=== PATIENT | male | born 1950 | race Caucasian/White ===

== ENCOUNTER 2018-10-10 13:57 | Outpatient (CLI) | payer OTHER | END 2018-10-10 13:58 | disposition home or self-care (01) | LOC: DTY/OP 13:57 | PROVIDERS: ATTEND Surgery | DX: E66.01 Morbid (severe) obesity due to excess calories (principal) | CPT/HCPCS: 97802 ==

== ENCOUNTER 2018-10-28 01:33 | Outpatient (CLI) | payer MEDICARE ==
--- NOTE | 2018-10-28 15:13 | RAD ---
TWO VIEWS CHEST: Comparison: 10-25-13 History: Pre-operative radiograph. FINDINGS: Two views of the chest shows a normal sized cardiomediastinal silhouette. A pacemaker is seen with it s leads in the right atrium, right ventricle and coronary sinus. There is no evidence of consolidatio n, mass, or pleural effusions. Degenerative changes are seen in the spine. IMPRESSION: No evidence of acute cardiopulmonary disease. POS: C
[2018-10-28 15:37] LABS: #Basophils 0.1 thou/uL (0.0-0.2); #Eosinphils 0.2 thou/uL (0.0-0.7); #Lymphocytes 1.7 thou/uL (1.20-3.40); #Monocytes 0.5 thou/uL (0.11-0.59); #Neutrophils 4.2 thou/uL (1.40-6.50); %Eosinophils 2.5 % (0.0-10.0); %Lymphocytes 25.3 % (21.0-51.0); %Monocytes 6.9 % (0.0-10.0); %Neutrophils 64.3 % (42.0-75.0); Hemoglobin 15.1 g/dL (14.0-18.0); Mean Corpuscular HGB CONC 34.3 g/dL (32.0-36.0); Mean Corpuscular Hemoglobin 30.8 pg (27.0-31.0); Mean Platelet Volume 6.8 fL (7.4-10.4); Platelet Count 274 thou/uL (130-400); Red Blood Cell (RBC) Count 4.89 mill/uL (4.70-6.10); White Blood Cell (WBC) Count 6.6 thou/uL (4.8-10.8)
[2018-10-28 15:50] LABS: Hemoglobin A1c 9.3 % (4.0-6.0)
[2018-10-28 15:57] LABS: ALT (SGPT) 24 U/L (8-55); AST (SGOT) 13 U/L (5-34); Alkaline Phosphatase 94 U/L (40-150); Anion Gap 12 mmol/L (10-20); BUN (Urea Nitrogen) 11 mg/dL (8.4-25.7); Bilirubin, Direct 0.2 mg/dL (0.1-0.3); Bilirubin, Total 0.5 mg/dL (0.2-1.2); Calc. Creatinine Clearance 0 mL/min (70-130); Calcium 9.4 mg/dL (7.8-10.44); Carbon Dioxide 22 mmol/L (23-31); Chloride 105 mmol/L (98-107); Estimated GFR-MDRD 75; Globulin 2.6 g/dL (2.4-3.5); Glucose 236 mg/dL (80-115); Potassium 4.2 mmol/L (3.5-5.1); Protein, Total 6.6 g/dL (5.8-8.1); Sodium 135 mmol/L (136-145)
--- NOTE | 2018-10-28 17:11 | EKG ---
Test Reason : Blood Pressure : / mmHG Vent. Rate : 061 BPM Atrial Rate : 061 BPM P-R Int : 142 ms QRS Dur : 212 ms QT Int : 532 ms P-R-T Axes : 069 009 122 degrees QTc Int : 535 ms AV sequential or dual chamber electronic pacemaker No previous ECGs available Confirmed by ALOK CHISHOLM ([id number]) on 10/28/2018 5:10:55 PM Referred By: MAHSA Confirmed By:ALOK CHISHOLM
== END 2018-10-28 01:34 | disposition home or self-care (01) ==
LOC: LABBT 01:33
PROVIDERS: ATTEND Surgery
DX: Z01.818 Encounter for other preprocedural examination (principal); E11.9 Type 2 diabetes mellitus without complications; G47.30 Sleep apnea, unspecified; E78.5 Hyperlipidemia, unspecified
CPT/HCPCS: 71046; 80053; 80076; 83036; 85025; 93005; 93010

== ENCOUNTER 2018-10-28 13:30 | Inpatient (IN) | payer MEDICARE ==
[2018-10-28 14:19] VITALS: BMI 49.1
[2018-11-01] MEDS ORDERED: Heparin 5,000 UNITS/ML VIAL ONE (07:29)
[2018-11-01] MEDS ORDERED: Fentanyl 100 MCG/2 ML VIAL ONE ×4 (08:23→11:22)
[2018-11-01] MEDS ORDERED: Midazolam HCl 2 mg/2 ml Vial ONE (08:23)
[2018-11-01] MEDS ORDERED: Bupivacaine/Epinephrine 0.25% 30 ML VIAL ONE (08:28)
[2018-11-01] MEDS ORDERED: Promethazine HCl 25 MG/ML VIAL IM PRN ×3 (10:05→11:06)
[2018-11-01] MEDS ORDERED: Promethazine HCl 25 MG/ML VIAL SLOW IVP PRN (10:05)
[2018-11-01] MEDS ORDERED: Ondansetron HCl/PF 4 MG/2 ML Vial IVP PRN (10:05)
[2018-11-01] MEDS ORDERED: Promethazine HCl 25 MG/ML VIAL ONE (10:49)
[2018-11-01] MEDS ORDERED: diphenhydrAMINE 50 MG/ML VIAL IVP PRN ×2 (11:02→11:06)
[2018-11-01] MEDS ORDERED: Hydrocodone-Acetamin 15 ML UDCUP PO PRN (11:02)
[2018-11-01] MEDS ORDERED: Dextrose 50% Abboject 50 ML SYRINGE SLOW IVP PRN (11:02)
[2018-11-01] MEDS ORDERED: Dextrose 5% in Water 1,000 ML IV PRN (11:02)
[2018-11-01] MEDS ORDERED: Ondansetron PF 4 MG/2 ML Vial IVP PRN ×2 (11:02→11:06)
[2018-11-01] MEDS ORDERED: fentaNYL Citrate/PF 2,000 MCG in Sodium Chloride 0.9% 60 ML IV PRN (11:06)
[2018-11-01] MEDS ORDERED: diphenhydrAMINE 25 MG CAP PO PRN (11:06)
[2018-11-01] MEDS ORDERED: Naloxone HCl 0.4 mg/ml Vial IV PRN (11:06)
[2018-11-01] MEDS ORDERED: Zolpidem Tartrate 5 MG TAB PO PRN (11:06)
[2018-11-01] MEDS ORDERED: diphenhydrAMINE 50 MG/ML VIAL IM PRN (11:06)
[2018-11-01] MEDS ORDERED: Communication Order-Pharmacy FS SCH ×2 (11:15→13:15)
--- NOTE | 2018-11-01 12:08 | OP ---
DATE OF PROCEDURE: 11/01/2018 PREOPERATIVE DIAGNOSES: 1. Morbid obesity with a body mass index of 49. 2. Hypertension. 3. Dyslipidemia. 4. Diabetes mellitus. POSTOPERATIVE DIAGNOSES: 1. Morbid obesity with a body mass index of 49. 2. Hypertension. 3. Dyslipidemia. 4. Diabetes mellitus. PROCEDURE PERFORMED: 1. Laparoscopic sleeve gastrectomy with [place] staple line reinforcements and 38-Thai bougie. 2. Esophagogastroduodenoscopy. ANESTHESIA: General. ESTIMATED BLOOD LOSS: 50 mL. COMPLICATIONS: None. FINDINGS: Normal postoperative EGD. DESCRIPTION OF PROCEDURE: The patient was taken to the operating room and laid supine on the operating room table. After general anesthetic was obtained, the arms and legs were double strapped to bariatric table. The abdomen was shaved, prepped, and draped in a sterile fashion. Left subcostal 5-mm Optiview trocar was placed in the usual fashion without injury and high-flow pneumoperitoneum was obtained. Right subcostal 5-mm port as well as 2 lower abdominal 12-mm ports were all placed under direct visualization. A 5-mm incision was made at the xiphoid beneath and Guzman was used to raise the liver off the GE junction. Short gastrics were taken down mid body of stomach to the left za of diaphragm. Left za, posterior fundus, and angle of His was completely dissected. Short gastrics were taken down to a distance of 6 cm proximal to the pylorus. OG tube was removed and 38 bougie was brought in and its tip left in the antrum of the stomach. Multiple staple fires were used to perform the sleeve. The first was fired up at a distance of 6 cm proximal to the pylorus angled up towards the incisura. Multiple loads were then fired up along the bougie. Stomach was completely transected at the angle of His. Stomach was removed from the left abdominal incision. This fascial defect was closed using GraNee needle and 0 Vicryl tie. All wounds were irrigated. EGD scope was passed through esophagus and stomach to the level of duodenum without obstruction. There was no stricture on the staple line. There was no air leakage or bleeding. EGD scope was used to decompress the stomach. It was pulled and removed. All ports were removed under direct visualization without bleeding. Pneumoperitoneum was let down. Vicryl was used to close the fascial defect from the left abdominal incisions. All incisions were irrigated and closed using 4-0 Monocryl and Dermabond. The patient was sent to Recovery in stable condition. All instrument counts, needle counts, and lap counts were correct. Job ID: [id number]
[2018-11-01] MEDS: Acetaminophen 1,000 MG in Premix Bag 1 BAG IVPB SCH ×3 (13:56→23:14)
[2018-11-01] MEDS: Sodium Chloride 0.9% 1,000 ML IV SCH ×2 (13:58→21:32)
[2018-11-01] MEDS ORDERED: PROPOFOL 200 MG/20 ML VIAL ONE (15:31)
[2018-11-01] MEDS ORDERED: Succinylcholine Chloride 20 MG/ML 10 ml SYRINGE FS ONE (15:31)
[2018-11-01] MEDS ORDERED: Metoclopramide HCl 10 MG/2 ML VIAL ONE (15:31)
[2018-11-01] MEDS ORDERED: Rocuronium Bromide 10 MG/ML (10ML VIAL) ONE (15:31)
[2018-11-01] MEDS ORDERED: ePHEDrine 50 MG/ML VIAL ONE (15:31)
[2018-11-01] MEDS ORDERED: Ondansetron PF 4 MG/2 ML Vial ONE (15:31)
[2018-11-01] MEDS ORDERED: Ketorolac Tromethamine 30 MG/ML VIAL ONE (15:31)
[2018-11-01] MEDS ORDERED: Glycopyrrolate 0.2 MG/ML 5 ML SYRINGE ONE (15:31)
[2018-11-01] MEDS ORDERED: Lidocaine 1% PF 5 ML VIAL ONE (15:31)
[2018-11-01] MEDS ORDERED: Dexamethasone 20 MG/5 ML VIAL ONE (15:31)
[2018-11-01] MEDS: HumaLOG 300 UNITS/3 ML VIAL SC PRN ×2 (18:43→23:13)
[2018-11-01] MEDS: hydrALAZINE 20 MG/ML VIAL SLOW IVP PRN (19:51)
[2018-11-01] MEDS: Carvedilol 25 MG TAB PO SCH (19:51)
[2018-11-01] MEDS ORDERED: Carvedilol 25 MG TAB PO SCH (21:00)
[2018-11-01] MEDS ORDERED: Enoxaparin Sodium 40 MG/0.4 ML SYRINGE SC SCH (21:00)
[2018-11-02] MEDS: hydrALAZINE 20 MG/ML VIAL SLOW IVP PRN (03:44)
[2018-11-02] MEDS: Acetaminophen 1,000 MG in Premix Bag 1 BAG IVPB SCH (05:05)
[2018-11-02] MEDS: HumaLOG 300 UNITS/3 ML VIAL SC PRN ×2 (05:09→11:09)
[2018-11-02 05:22] LABS: #Lymphocytes 1.4 thou/uL (1.20-3.40); #Monocytes 1.2 thou/uL (0.11-0.59); #Neutrophils 11.7 thou/uL (1.40-6.50); %Basophils 0.3 % (0.0-1.0); %Eosinophils 0.1 % (0.0-10.0); %Lymphocytes 9.7 % (21.0-51.0); %Monocytes 8.4 % (0.0-10.0); %Neutrophils 81.6 % (42.0-75.0); Hemoglobin 14.2 g/dL (14.0-18.0); Mean Corpuscular HGB CONC 33.7 g/dL (32.0-36.0); Mean Corpuscular Hemoglobin 30.9 pg (27.0-31.0); Mean Corpuscular Volume 91.9 fL (78.0-98.0); Mean Platelet Volume 6.5 fL (7.4-10.4); Platelet Count 305 thou/uL (130-400); RBC Distribution Width 12.2 % (11.5-14.5); Red Blood Cell (RBC) Count 4.57 mill/uL (4.70-6.10); White Blood Cell (WBC) Count 14.3 thou/uL (4.8-10.8)
[2018-11-02 05:42] LABS: Anion Gap 13 mmol/L (10-20); BUN (Urea Nitrogen) 15 mg/dL (8.4-25.7); Calc. Creatinine Clearance 158 mL/min (70-130); Calcium 8.9 mg/dL (7.8-10.44); Carbon Dioxide 22 mmol/L (23-31); Chloride 106 mmol/L (98-107); Estimated GFR-MDRD 67; Glucose 216 mg/dL (80-115); Potassium 4.2 mmol/L (3.5-5.1); Sodium 137 mmol/L (136-145)
[2018-11-02] MEDS ORDERED: Alogliptin 25 MG TAB PO SCH (09:00)
[2018-11-02] MEDS ORDERED: Pantoprazole 40 MG VIAL IVP SCH (09:00)
[2018-11-02] MEDS ORDERED: Sacubitril 49 MG/Valsartan 51 MG TABLET PO SCH (09:00)
[2018-11-02] MEDS: Sodium Chloride 0.9% 1,000 ML IV SCH (09:01)
[2018-11-02] MEDS: Carvedilol 25 MG TAB PO SCH (09:06)
--- NOTE | 2018-11-02 09:26 | DIS ---
DATE OF ADMISSION: 11/01/2018 DATE OF DISCHARGE: 11/02/2018 ADMITTING DIAGNOSES: Morbid obesity, diabetes, and hypertension. DISCHARGE DIAGNOSES: Morbid obesity, diabetes, and hypertension. PROCEDURES: Laparoscopic sleeve by Dr. Bright without complication. CONDITION ON DISCHARGE: Improved. STAFF: Norberto Bright MD HOSPITAL COURSE: On postop day 1, the patient is doing well. He is ambulatory as tolerated, on a liquid diet. He is to be discharged home. He will follow up with me in 2 weeks. Job ID: [id number]
[2018-11-02] MEDS ORDERED: Ondansetron ODT 4 MG TAB PO PRN (11:06)
[2018-11-02 11:33] VITALS: BP 153/70; TEMP 98.7
== END 2018-11-02 11:40 | disposition home or self-care (01) | DRG 621 ==
LOC: SURG A 11-01 06:34
PROVIDERS: ADMIT Surgery; ATTEND Surgery
PROC: 0DB64Z3 Excision of Stomach, Percutaneous Endoscopic Approach, Vertical (ICD-10-PCS; principal; 2018-11-01)
PROC: 0DJ08ZZ Inspection of Upper Intestinal Tract, Via Natural or Artificial Opening Endoscopic (ICD-10-PCS; 2018-11-01)
DX: E66.01 Morbid (severe) obesity due to excess calories (principal); E11.9 Type 2 diabetes mellitus without complications; I10 Essential (primary) hypertension; E78.5 Hyperlipidemia, unspecified; Z68.42 Body mass index [BMI] 45.0-49.9, adult
CPT/HCPCS: 36415; 36416; 80048; 85025; 88307; 88312; 94760; C9113; J0131; J0360; J1100; J1644; J1650; J1885; J2001; J2250; J2405; J2550; J2704; J2765; J3010; J3490; J7050; Q0162

== ENCOUNTER 2019-05-12 06:52 | Day surgery (SDC) | payer MEDICARE, BC ==
[2019-05-11 10:05] VITALS: BMI 38.1
--- NOTE | 2019-05-12 16:57 | OP ---
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 PROCEDURE PERFORMED: Screening colonoscopy with snare polypectomy. INDICATION: A 68-year-old man, here for first average-risk colorectal cancer screening exam. He has no family history of colon cancer. MEDICATIONS: See Anesthesia record. FINDINGS: After discussion of the risks, benefits, and alternatives of the procedure, informed consent was obtained and witnessed. Pre-endoscopic cardiopulmonary examination was satisfactory. Time-out was performed before sedation was achieved. Sedation was achieved with Anesthesia assistance in the endoscopy unit. Digital rectal exam was performed, which was unremarkable. A Pentax adult colonoscope was inserted into the anus and passed forward to the cecum in the usual fashion. The cecal base was identified by the appendiceal orifice as well as the ileocecal valve. The terminal ileum was not intubated. The colonoscope was slowly withdrawn in a gradual and circumferential manner with careful examination of the entire colonic mucosa. The quality of the prep was good. In the ascending colon, there is a single polyp measuring about 6 mm in diameter, this is a sessile polyp. It was completely removed with hot snare and retrieved for pathology. In the transverse colon, there was a single superficial linear erosion. The remainder of the colonic mucosa appeared normal throughout. There is some diverticulosis in the left colon. Internal hemorrhoids are evident upon retroflexion in the rectum. The colonoscope was completely withdrawn and the patient allowed to recover. The patient tolerated the procedure well. There were no immediate postprocedure complications. IMPRESSION: 1. 6 mm sessile polyp in the ascending colon, completely removed with hot snare and retrieved for pathology. 2. Single superficial linear erosion in the transverse colon. 3. Left-sided diverticulosis. 4. Internal hemorrhoids. RECOMMENDATIONS: 1. Follow up pathology on the ascending colon polyp. 2. Repeat colonoscopy based on pathology results. If the polyp is hyperplastic or inflammatory, colonoscopy can be repeated in 10 years. If the polyp is an adenoma, repeat colonoscopy in 5 years. Job ID: [id number]
== END 2019-05-12 11:20 | disposition home or self-care (01) ==
LOC: SDC 06:52
PROVIDERS: ATTEND Internal Medicine
PROC: 0DBK8ZZ Excision of Ascending Colon, Via Natural or Artificial Opening Endoscopic (ICD-10-PCS; principal; 2019-05-12)
DX: Z12.11 Encounter for screening for malignant neoplasm of colon (principal); K63.5 Polyp of colon; I10 Essential (primary) hypertension; I25.10 Atherosclerotic heart disease of native coronary artery without angina pectoris; G47.30 Sleep apnea, unspecified; E11.42 Type 2 diabetes mellitus with diabetic polyneuropathy; Z79.899 Other long term (current) drug therapy; Z87.891 Personal history of nicotine dependence; Z88.0 Allergy status to penicillin; Z95.810 Presence of automatic (implantable) cardiac defibrillator; Z98.84 Bariatric surgery status
CPT/HCPCS: 88305